=== PATIENT | male | born 1960 | race Caucasian/White ===

== ENCOUNTER 2019-11-12 09:17 | Outpatient (CLI) | payer OTHER, SELFPAY ==
--- NOTE | 2019-11-12 09:27 | XR_ITS ---
WS: [id number] LUMBAR SPINE TECHNIQUE: 3 views of the lumbar spine CLINICAL INFORMATION: BACK PAIN, LUMBAR WITH RADICULOPATHY COMPARISON: None. FINDINGS: Five [id number] lumbar vertebral bodies. Disc space heights are well preserved. No compression f ractures. Grade 1 anterolisthesis L5 on S1 measuring up to 9.9 mm with bilateral spondylolysis. Disc space narrowing worse L5-S1. Moderate facet arthropathy L4-L5 and L5-S1. Bony foraminal narrowing L5- S1. Visualized sacroiliac joints are normal. Normal visualized soft tissues. Partially visualized bowel g as pattern is normal. XR/XR lumbar spine 2-3V* [id number] IMPRESSION: 1. Grade 1 anterolisthesis L5 on S1 measuring 9.9 mm bilateral spondylolysis. 2. Disc space narrowing worse L5-S1. 3. Moderate facet arthropathy L4-L5 and L5-S1. 4. Mild lumbar scoliosis convex right.
== END 2019-11-12 09:18 | disposition home or self-care (01) ==
PROVIDERS: Family Provider Electrodiagnostic Medicine; PCP Electrodiagnostic Medicine; Visit Provider Electrodiagnostic Medicine
DX: M54.16 Radiculopathy, lumbar region (principal); M47.817 Spondylosis without myelopathy or radiculopathy, lumbosacral region
CPT/HCPCS: 72100

== ENCOUNTER 2019-11-20 15:29 | Outpatient (CLI) | payer OTHER, SELFPAY ==
--- NOTE | 2019-11-20 15:42 | MR_ITS ---
WS: [id number] MRI LUMBAR SPINE NONCONTRAST TECHNIQUE: Sagittal T1, T2 and STIR imaging. Axial T1 and T2 imaging. CLINICAL INFORMATION: BACK PAIN, LUMBAR WITH RADICULOPATHY COMPARISON: None. FINDINGS: Mild lumbar curve. No acute compression. L5-S1 chronic spondylolysis. Grade 1 anterolisthesis measure s 9 mm. No high-grade central canal stenosis. L1-L2: Mild annular bulging. Moderate facet arthropathy. Spinal canal and foramen are patent. L2-L3: Mild annular bulging with slight effacement of the ventral thecal sac. Moderate facet arthropa thy. Mild left and no significant right foraminal narrowing. L3-L4: Mild annular bulging. Slight narrowing of the right subarticular recess. Moderate facet arthro griffin. Spinal canal and foramen are patent. L4-L5: Right subarticular disc extrusion with inferior migration of disc material. Disc material in t he right subarticular recess impinges the traversing right L5 nerve root. Disc material measures 8 x 6 mm. Mild right and no significant left foraminal narrowing. Moderate facet arthropathy. L5-S1: Grade 1 anterolisthesis with chronic spondylolysis. Moderate facet arthropathy. Narrowing of t he subarticular recess right greater than left. Encroachment traversing S1 nerve roots. Moderate to a dvanced right facet arthropathy. Mild right greater than left foraminal narrowing. Contact of the exi ting right L5 nerve root. Visualized pelvic bony structures: Normal. Paravertebral soft tissues: Normal. MR/MR lumbar spine wo con* [id number] IMPRESSION: 1. Right L4-5 subarticular disc extrusion extending into the right subarticula r recess. Impingement traversing right L5 nerve root. Disc material measures 8 x 6 mm. Encroachment on the exiting right L5 nerve root with mild right foramin al narrowing. 2. Grade 1 anterolisthesis L5 on S1 with chronic spondylolysis. Anterolisthesi s measures 9 mm. 3. Mild left L2-3 foraminal narrowing. 4. Shallow right pericentral protrusion L3-4 with slight narrowing of the righ t subarticular recess and traversing right L4 nerve root.
== END 2019-11-20 15:30 | disposition home or self-care (01) ==
LOC: RADWPI 15:32
PROVIDERS: Family Provider Electrodiagnostic Medicine; PCP Electrodiagnostic Medicine; Visit Provider Electrodiagnostic Medicine
DX: M51.26 Other intervertebral disc displacement, lumbar region (principal); M54.16 Radiculopathy, lumbar region; M48.061 Spinal stenosis, lumbar region without neurogenic claudication
CPT/HCPCS: 72148

== ENCOUNTER 2020-08-26 12:54 | Outpatient (CLI) | payer OTHER, SELFPAY ==
--- NOTE | 2020-08-26 13:10 | XRR_ITS ---
PROCEDURE INFORMATION: Exam: XR Lumbosacral Spine Exam date and time: 08/26/2020 1:10 PM Age: 60 years old Clinical indication: Low back pain; Prior surgery; Surgery date: 1-6 months; Surgery type: L spine April 2020; Additional info: Back pain, lumbar with radiculopathy, weakness TECHNIQUE: Imaging protocol: XR of the lumbosacral spine. Views: 2 or 3 views. COMPARISON: MR lumbar spine wo con* [id number] 11/20/2019 3:39 PM FINDINGS: Bones/joints: The patient has undergone L4 through S1 posterior fusion and laminectomy with the presence of pedicle screws and rods. Position and alignment appears satisfactory. Degenerative changes are present with scattered osteophytes on the vertebral bodies. There is mild scoliosis but no other significant malalignment. Soft tissues: Unremarkable. XR/XR lumbar spine 2-3V* [id number] IMPRESSION: 1. No acute abnormality. 2. Satisfactory postsurgical appearance of the L4-S1 laminectomy and fusion.
== END 2020-08-26 12:55 | disposition home or self-care (01) ==
PROVIDERS: PCP Electrodiagnostic Medicine; Visit Provider Electrodiagnostic Medicine
DX: R53.1 Weakness (principal); M54.16 Radiculopathy, lumbar region; M43.26 Fusion of spine, lumbar region; M96.1 Postlaminectomy syndrome, not elsewhere classified
CPT/HCPCS: 72100

== ENCOUNTER 2020-09-09 09:23 | Outpatient (CLI) | payer OTHER, SELFPAY ==
--- NOTE | 2020-09-09 09:30 | MR_ITS ---
WS: [id number] MRI LUMBAR SPINE NONCONTRAST HISTORY: FUSION OF LUMBAR SPINE, WEAKNESS, BACK PAIN W RADICULOPATHY COMPARISON: 11/20/2019 TECHNIQUE: Sagittal and axial multisequence imaging is submitted. Same numbering pattern will be utilized on today's examination as on the prior study. Prior posterior lumbar fusion extending from L4 to S1. L5 anterolisthesis by 7.5 mm. Interbody spacers at L4-5 and L5-S1. Mild RIGHT curvature of the lumbar spine. There is a large amount of edema within the L4, L5 and S1 1 vertebral bodies and also the paravertebr al soft tissues and the disc spaces. Edema along the anterior vertebral bodies. Conus terminates normally at L1. L1-L2: Normal. L2-L3: Mild annular disc bulging and ligamentum flavum hypertrophy. Small amount of fluid in the face t joints. Mild narrowing of the foramina bilaterally due to osteophyte disease and facet disease. Sli ghtly greater on the LEFT. L3-L4: Moderate annular disc bulging with mild encroachment upon the ventral thecal sac and the L4 ne rve roots. No high-grade stenosis. L4-L5: Large posterior laminectomy defects. Mild bilateral facet joint arthritis and ligamentum flavu m arthritis. Nerve roots are becoming clumped within the thecal sac. Very mild narrowing of the jennifer justino. L5-S1: Large posterior laminectomy defects. Nerve roots are becoming clumped in the thecal sac. Facet joint arthritis and mild osteophytic ridging and disc bulging. Moderate bilateral foraminal stenosis due to the anterolisthesis and the degenerative disc disease and osteophytosis. Mild clumping of the nerve roots in the thecal sac. Small bilateral renal cysts. MR/MR lumbar spine wo con* [id number] IMPRESSION: 1. Since prior study patient has undergone a posterior lumbar fusion from L4 t o S1. Same numbering pattern utilized on today's examination as the prior MRI o f 11/20/2019. 2. There is a large amount of postoperative edema at the surgical site. Edema within the vertebral bodies from L4 to S1, prevertebral edema and paraspinal ed guilherme. This may all be normal postoperative change. Cannot exclude osteomyelitis or cellulitis without IV contrast. 3. Grade 1 anterolisthesis of L5 is unchanged. 4. Clumping of the nerve roots in the thecal sac from arachnoiditis. 5. Moderate bilateral foraminal stenosis at L5-S1 due to combination of factor s. Similar to the prior study. Slightly greater narrowing of the RIGHT foramen.
== END 2020-09-09 09:24 | disposition home or self-care (01) ==
PROVIDERS: PCP Electrodiagnostic Medicine; Visit Provider Electrodiagnostic Medicine
DX: M43.26 Fusion of spine, lumbar region (principal); M43.27 Fusion of spine, lumbosacral region; R53.1 Weakness; M54.16 Radiculopathy, lumbar region; M48.07 Spinal stenosis, lumbosacral region; R60.0 Localized edema
CPT/HCPCS: 72148

== ENCOUNTER 2022-04-13 09:00 | Outpatient (RCR) | payer OTHER, SELFPAY | END 2022-05-05 23:59 | disposition home or self-care (01) | LOC: SPT 09:00 | PROVIDERS: PCP Electrodiagnostic Medicine; Visit Provider Family Medicine | DX: M25.562 Pain in left knee (principal) | CPT/HCPCS: 97110; 97161 ==

== ENCOUNTER 2022-05-06 06:00 | Outpatient (RCR) | payer OTHER, SELFPAY | END 2022-06-04 10:37 | disposition home or self-care (01) | LOC: SPT 06:00 | PROVIDERS: PCP Electrodiagnostic Medicine; Visit Provider Family Medicine | DX: M25.562 Pain in left knee (principal) | CPT/HCPCS: 97110 ==

== ENCOUNTER → 2023-03-24 10:01 | Outpatient (BNVA) | payer OTHER, SELFPAY | PROVIDERS: PCP Electrodiagnostic Medicine; Visit Provider Podiatrist Foot & Ankle Surgery | DX: M21.6X1 Other acquired deformities of right foot; M21.6X2 Other acquired deformities of left foot; M72.2 Plantar fascial fibromatosis | CPT/HCPCS: 73630; 99203 ==

== ENCOUNTER → 2023-04-21 08:29 | Outpatient (BNVA) | payer OTHER, SELFPAY | PROVIDERS: PCP Electrodiagnostic Medicine; Visit Provider Podiatrist Foot & Ankle Surgery | DX: M72.2 Plantar fascial fibromatosis | CPT/HCPCS: 99213 ==

== ENCOUNTER → 2023-05-12 09:31 | Outpatient (BNVA) | payer OTHER, SELFPAY | PROVIDERS: PCP Electrodiagnostic Medicine; Visit Provider Podiatrist Foot & Ankle Surgery | DX: M72.2 Plantar fascial fibromatosis; M79.671 Pain in right foot | CPT/HCPCS: 99213 ==

== ENCOUNTER 2023-06-30 15:42 | Emergency (ER) | payer OTHER, SELFPAY ==
[2023-06-30 15:57] VITALS: BP 172/81; PULSE 82; RESP 15; TEMP 36.7; O2SAT 96
--- NOTE | 2023-06-30 16:17 | CTR_ITS ---
PROCEDURE INFORMATION: Exam: CT Head Without Contrast Exam date and time: 06/30/2023 4:54 PM Age: 63 years old Clinical indication: Injury or trauma; Fall; Blunt trauma (contusions or hematomas) TECHNIQUE: Imaging protocol: Computed tomography of the head without contrast. Radiation optimization: All CT scans at this facility use at least one of these dose optimization techniques: automated exposure control; mA and/or kV adjustment per patient size (includes targeted exams where dose is matched to clinical indication); or iterative reconstruction. COMPARISON: MR cervical spin wo con* [id number] 08/02/2017 3:58 PM RADIATION DOSE METRICS: Total DLP (mGy-cm): 1143 FINDINGS: Brain: No midline shift. Ventricles, cisterns, and sulci are normal. No mass, acute infarct, hemorrhage, or extraaxial fluid collection. Cerebral ventricles: No ventriculomegaly. Paranasal sinuses: Visualized sinuses are unremarkable. No fluid levels. Mastoid air cells: Visualized mastoid air cells are well aerated. Bones/joints: Unremarkable. No acute fracture. Soft tissues: Unremarkable. CT/CT head wo con* [id number] IMPRESSION: No acute intracranial abnormality.
--- NOTE | 2023-06-30 16:17 | W.ED.DIZZY ---
HPI - Dizziness General: Chief Complaint: Dizziness Stated Complaint: fell 2 days ago, n,v,hot sweats Time Seen by Provider: 06/30/23 16:08 Source: patient Mode of arrival: ambulatory History of Present Illness: HPI Narrative: 63-year-old male presents emergency room with complaint of lightheaded and dizzy spinning sensations very positional when he moves his head he can retrigger or when he lays down. Seem to begin after he fell and hit his head a few days ago on the ice. He has not had any vomiting no vision changes. No previous head injury no history of any seizures did not lose consciousness or have any other injuries when he fell. MD elicited complaint: dizziness Onset (ago): hour(s) Timing: awoke with symptoms Severity: moderate Description: room spinning Context: trauma Exacerbating factors: change in body position and position/lying down Relieving factors: keeping eyes closed Associated symptoms: Denies change in hearing, chest pain, chills, cough, diaphoresis, ear discharge, ear pressure, fevers/chills, headache(s), malaise, nausea, nasal congestion, palpitations, rash, short of breath, syncope, tinnitus, vomiting or weakness Review of Systems Const: Denies: chills, malaise or diaphoresis ENMT: Denies: ear discharge, change in hearing, tinnitus or nasal congestion Card: Denies: chest pain, palpitations or syncope Resp: Denies: dyspnea GI: Denies: nausea or vomiting : Denies: dysuria, urinary frequency or urinary urgency Musc: Denies: neck pain or back pain Skin/Breast: Denies: rash Neuro: Denies: headache(s) Physical Exam Const: COMMON NORMALS: no acute distress GENERAL APPEARANCE: cooperative and comfortable ORIENTATION/CONSCIOUSNESS: Yes awake, Yes oriented to person, Yes oriented to place and Yes oriented to time HENMT: COMMON NORMALS: normocephalic, atraumatic, hearing grossly normal bilaterally, external ears normal, EAC's normal, TM's normal bilaterally and Normal nasal mucous membranes and turbinates present HEAD & SCALP: normocephalic and atraumatic NOSE: Normal nasal mucous membranes and turbinates present EXTERNAL EAR: Yes external ears normal EXTERNAL AUDITORY CANAL: EAC's normal TYMPANIC MEMBRANE: TM's normal bilaterally Eye: COMMON NORMALS: Equal, round and reactive pupils present, EOMs intact bilaterally, conjunctivae normal and no scleral icterus CONJUNCTIVA: Yes conjunctivae normal PUPIL: Yes Equal, round and reactive pupils present Neck/C-Spine: COMMON NORMALS: full ROM, no lymphadenopathy, supple and no JVD Resp: COMMON NORMALS: normal respiratory effort, No retractions, No use of accessory muscles and clear to auscultation bilaterally AUSCULTATION: clear to auscultation bilaterally Cardio: COMMON NORMALS: no JVD, regular rate, regular rhythm and No murmurs present (Cardio) RATE: regular rate RHYTHM: regular rhythm GI: COMMON NORMALS: Soft to palpation and No hepatosplenomegaly present AUSCULTATION: Yes normoactive bowel sounds PALPATION: Yes Soft to palpation, No Tenderness to palpation present (GI), No Guarding due to palpation present (GI) and Yes No hepatosplenomegaly present Extremity: COMMON NORMALS: normal to inspection, capillary refill normal, no clubbing, cyanosis or edema, no calf tenderness and no pedal edema Neuro: SENSORIUM/ORIENTATION: Yes oriented to person, Yes oriented to place and Yes oriented to time Skin: COMMON NORMALS: no rashes or lesions noted GENERAL SKIN EXAM: no rashes or lesions noted Course Vital Signs: Vital signs: Vital Signs Temperature 98.1 F 06/30/23 15:57 Pulse Rate 82 06/30/23 15:57 Respiratory Rate 15 06/30/23 15:57 Blood Pressure 172/81 06/30/23 15:57 Pulse Oximetry 96 06/30/23 15:57 Oxygen Delivery Me thod Room Air 06/30/23 15:57 MDM - Dizziness Medical Decision Making Fall with concussion CT head negative. Discharge patient home discussed usual course of concussions and recovery. Follow-up primary care return if is further problems. Medical Records I reviewed the patient's medical records. Lab Data I reviewed the patient's lab results. 06/30/23 16:14 06/30/23 16:[address] 06/30/23 16:17 IMPRESSION: No acute intracranial abnormality. Laboratory Results WBC 10.15 10^3/uL (3.29-11.43) 06/30/23 16:14 RBC 5.34 10^6/uL (3.85-5.65) 06/30/23 16:14 Hgb 16.20 g/dL (11.27-16.99) 06/30/23 16:14 Hct 47.6 % (37-53) 06/30/23 16:14 MCV 89.1 fl (82-101) 06/30/23 16:14 MCH 30.3 pg (27-33) 06/30/23 16:14 MCHC 34.0 g/dL (30-55) 06/30/23 16:14 RDW 12.6 % (12.1-15.1) 06/30/23 16:14 Plt Count 187 10^3/cmm (157-399) 06/30/23 16:14 MPV 9.2 fL (7.4-10.4) 06/30/23 16:14 Neut % (Auto) 82.4 % 06/30/23 16:14 Lymph % (Auto) 11.4 % 06/30/23 16:14 Pike % (Auto) 4.5 % 06/30/23 16:14 Eos % (Auto) 1.1 % 06/30/23 16:14 Baso % (Auto) 0.3 % 06/30/23 16:14 Neut # (Auto) 8.36 10^3/uL (1.8-7.7) H 06/30/23 16:14 Lymph # (Auto) 1.2 10^3/uL (0.8-4.8) 06/30/23 16:14 Pike # (Auto) 0.5 10^3/uL (0.2-0.9) 06/30/23 16:14 Eos # (Auto) 0.1 10^3/uL (0.0-0.8) 06/30/23 16:14 Baso # (Auto) 0.0 10^3/uL (0.0-0.1) 06/30/23 16:14 Nucleated RBC % (auto) 0 % 06/30/23 16:14 Nucleated RBCs # 0.0 /100WBC 06/30/23 16:14 Sodium 140 mmol/L (136-145) 06/30/23 16:14 Potassium 4.3 mmol/L (3.5-5.1) 06/30/23 16:14 Chloride 106 mmol/L (98-107) 06/30/23 16:14 Carbon Dioxide 24 mmol/L (22-29) 06/30/23 16:14 Anion Gap 14.3 (5-19) 06/30/23 16:14 BUN 19 mg/dL (8-23) 06/30/23 16:14 Creatinine 1.0 mg/dL (0.7-1.2) 06/30/23 16:14 GFR Calculation 75.7 mL/min (90-130) L 06/30/23 16:14 Glucose 186 mg/dL (65-115) H 06/30/23 16:14 Calculated Osmolality 297 mOsm/kg (285-295) H 06/30/23 16:14 Calcium 9.2 mg/dL (8.5-10.5) 06/30/23 16:14 Total Bilirubin 0.4 mg/dL (0.15-1.2) 06/30/23 16:14 AST 17 U/L (0-40) 06/30/23 16:14 ALT 19 U/L (0-41) 06/30/23 16:14 Alkaline Phosphatase 67 U/L (40-130) 06/30/23 16:14 Total Protein 6.7 g/dL (6.6-8.7) 06/30/23 16:14 Albumin 4.0 g/dL (3.5-5.2) 06/30/23 16:14 Globulin 2.7 g/dL (1.3-4.6) 06/30/23 16:14 All radiology interpretation(s) finalized by discharge Discharge Plan Discharge Patient Disposition: Home Clinical Impression: Concussion Condition: Stable Prescriptions: New meclizine 25 mg tablet 25 mg PO QID PRN (Reason: dizziness) Qty: 20 0RF No Action (DME) Custom Orthotics See Rx Instructions .Route .MEDSUPPLY Qty: 1 0RF Rx Instructions: As directed by Avinash Gil zinc acetate 50 mg (zinc) Capsule 25 mg PO DAILY meloxicam 15 mg Tablet 15 mg PO DAILY Synthroid 100 mcg Tablet 100 mcg PO DAILY Vitamin C 500 mg Tablet 500 mg PO DAILY gabapentin 300 mg Capsule 300 mg PO TID Vitamin D3 25 mcg (1,000 unit) Capsule 25 mcg PO DAILY rosuvastatin 10 mg Tablet 5 mg PO QPM Fish Oil 500 mg Capsule 500 mg PO DAILY Discharge Orders: Discharge ED (Routine); Ordered 06/30/23 Ordered By: Nj Alexander Referrals: Steven Musa, [Primary Care Provider] - Patient Instructions: Concussion (ED), Opioid Safety, Pain Management Activity Restrictions/Additional Instructions: Thank you for choosing [facility] for your healthcare needs today. Please realize this is an emergency room and that we are providing you with a medical screening exam and this may not be complete and all inclusive of all the testing and or work up that you may need to determine your ailment or severity of your illness. It is very important that you follow up as instructed or that you return to the Emergency Department should you have concerns or if your condition changes or worsens in any way. Coding Level of Care Code ED [employer] for Julita Freitas
[2023-06-30 16:30] LABS: Basophils % 0.3 %; Eosinophils # 0.1 10^3/uL (0.0-0.8); Eosinophils % 1.1 %; Hematocrit 47.6 % (37-53); Lymphocytes # 1.2 10^3/uL (0.8-4.8); Lymphocytes % 11.4 %; Mean Corpuscular Hemoglobin 30.3 pg (27-33); Mean Corpuscular Volume 89.1 fl (82-101); Mean Platelet Volume 9.2 fL (7.4-10.4); Monocytes # 0.5 10^3/uL (0.2-0.9); Monocytes % 4.5 %; Neutrophils # 8.36 10^3/uL (1.8-7.7); Neutrophils % 82.4 %; Nucleated Red Blood Cells % 0 %; Platelet Count 187 10^3/cmm (157-399); Red Blood Count 5.34 10^6/uL (3.85-5.65); Red Cell Distribution Width 12.6 % (12.1-15.1); White Blood Count 10.15 10^3/uL (3.29-11.43)
[2023-06-30 16:44] LABS: Alanine Aminotransferase 19 U/L (0-41); Alkaline Phosphatase 67 U/L (40-130); Anion Gap 14.3 (5-19); Aspartate Amino Transferase 17 U/L (0-40); Blood Urea Nitrogen 19 mg/dL (8-23); Calcium 9.2 mg/dL (8.5-10.5); Carbon Dioxide 24 mmol/L (22-29); Chloride 106 mmol/L (98-107); Globulin 2.7 g/dL (1.3-4.6); Glomerular Filtration Rate 75.7 mL/min (90-130); Glucose 186 mg/dL (65-115); Osmolality Calculated 297 mOsm/kg (285-295); Potassium 4.3 mmol/L (3.5-5.1); Sodium 140 mmol/L (136-145); Total Bilirubin 0.4 mg/dL (0.15-1.2); Total Protein 6.7 g/dL (6.6-8.7)
== END 2023-06-30 17:39 | disposition home or self-care (01) ==
PROVIDERS: Emergency Provider Family Medicine; PCP Electrodiagnostic Medicine
DX: S06.0X0A Concussion without loss of consciousness, initial encounter (principal); W00.0XXA Fall on same level due to ice and snow, initial encounter
CPT/HCPCS: 70450; 80053; 85025; 99284

== ENCOUNTER 2024-03-16 10:39 | Outpatient (CLI) | payer OTHER, SELFPAY ==
--- NOTE | 2024-03-16 10:41 | MR_ITS ---
WS: [id number] MRI HEAD WITH CONTRAST TECHNIQUE: Sagittal T1, T2 axial, T2 axial FLAIR, axial susceptibility weighted imaging, axial diffus ion weighted images, and coronal T2 images were obtained. Pre and post-T1 axial and post T1 coronal i mages. ADC and FSPGR images. CLINICAL INFORMATION: TREMORS COMPARISON: CT head 06/30/2023 FINDINGS: No evidence of restricted diffusion to suggest acute ischemia. Mild small vessel changes. Moderate parenchymal volume loss. Normal posterior fossa. Normal vascular flow voids at the skull base. No extra-axial fluid collections. No evidence of mass or mass effect. Paranasal sinuses and mastoid air cells are well aerated. Normal posterior nasopharynx. Normal optic chiasm and pituitary infundibulum. Temporal lobes and hippocampal formations are normal in appearance. No hemosiderin on the stability weighted images. No abnormal gadolinium enhancement. Normal dural venous sinuses. MR/MR head wo/w con [id number] IMPRESSION: 1. No evidence of restricted diffusion to suggest acute ischemia. 2. Mild small vessel changes. Moderate parenchymal volume loss. 3. No hemosiderin on the susceptibly weighted images. 4. No abnormal gadolinium enhancement.
[2024-03-16] MEDS: gadobenate dimeglumine 20 mL vial IV (11:48)
== END 2024-03-16 10:40 | disposition home or self-care (01) ==
LOC: RAD 10:39
PROVIDERS: PCP Family Medicine; Visit Provider Family Medicine
DX: G31.89 Other specified degenerative diseases of nervous system (principal)
CPT/HCPCS: 70553

== ENCOUNTER → 2024-10-30 08:42 | Outpatient (BNVA) | payer OTHER, SELFPAY | PROVIDERS: PCP Family Medicine; Referring Provider Family Medicine; Visit Provider Specialist | DX: G31.84 Mild cognitive impairment of uncertain or unknown etiology (principal); G62.9 Polyneuropathy, unspecified; G25.0 Essential tremor | CPT/HCPCS: 36415; 82542; 82607; 83520; 96116; 99205 ==

== ENCOUNTER → 2025-01-30 09:30 | Outpatient (BNVA) | payer OTHER, SELFPAY | PROVIDERS: PCP Family Medicine; Referring Provider Family Medicine; Visit Provider Specialist | DX: G31.84 Mild cognitive impairment of uncertain or unknown etiology (principal); G63 Polyneuropathy in diseases classified elsewhere; G25.0 Essential tremor | CPT/HCPCS: 99214 ==

== ENCOUNTER → 2025-03-26 10:34 | Outpatient (BNVA) | payer OTHER, SELFPAY | PROVIDERS: PCP Family Medicine; Visit Provider Surgery | DX: Z12.11 Encounter for screening for malignant neoplasm of colon (principal); R03.0 Elevated blood-pressure reading, without diagnosis of hypertension; G89.29 Other chronic pain; M25.561 Pain in right knee; M25.562 Pain in left knee | CPT/HCPCS: 20610; 73560; 73565; 99204; J7325 ==

== ENCOUNTER 2025-04-18 08:26 | Day surgery (SDC) | payer OTHER, SELFPAY ==
[2025-04-18 08:42] VITALS: BP 147/93; PULSE 69; RESP 18; TEMP 36.3; O2SAT 97; BMI 28.0
--- NOTE | 2025-04-18 09:33 | W.PM.OPSUD ---
Surgery/Procedure H&P Update DATE OF PROCEDURE: April 18, 2025 DATE H&P PERFORMED: 03/26/25 H&P UPDATE INFORMATION: I have reviewed H&P completed within last 30 days, I have examined patient prior to procedure, No changes to prior documentation, H&P is in [facility] EMR on date indicated and Risks and benefits of the procedure reviewed PLANNED PROCEDURE: Operation Date: 04/18/25 09:55 Proposed Procedures p Colonoscopy 30363 G0121 Z12.11(Not Applicable) - Taco Foster MD
--- NOTE | 2025-04-18 10:03 | ANES.PREANE2 ---
Pre-Anesthetic Assessment Height/Weight: Height 1.93 m Weight 104.326 kg Temp Pulse Resp BP Pulse Ox O2 Del Method 97.4 F L 69 18 147/93 97 Room Air 04/18/25 08:42 04/18/25 08:42 04/18/25 08:42 04/18/25 08:42 04/18/25 08:42 04/18/25 08:42 Operation Date: 04/18/25 09:55 Proposed Procedures p Colonoscopy 42093 G0121 Z12.11(Not Applicable) - Taco Foster MD Familial anesthetic complications: None Was Beta Hillary taken within 24 hours: N/A Was Clonidine taken within 24 hours: N/A Last intake: Intake Last Liquid Date 04/17/25 Last Liquid Time 20:00 Last Solid Date 04/16/25 Last Solid Time 20:00 Social No alcohol and No tobacco Exam alert, oriented x 3, clear to auscultation bilaterally and regular rate & rhythm Airway Mallampati: Class III Dentition: full Metabolic Thyroid Disease Anesthetic Plan ASA status: 2 Anesthesia: MAC Risk of > 500 ml blood loss (7ml/kg in children): No Medications/Allergies Home Medications ?Medication ?Instructions ?Recorded ?Confirmed ?Last Taken ?Type Custom Orthotics #1 ea 05/12/23 03/26/25 Unknown Rx ascorbic acid (vitamin C) 500 mg 500 mg PO DAILY 06/30/23 04/15/25 04/15/25 History tablet (Vitamin C) cholecalciferol (vitamin D3) 25 25 mcg PO DAILY 06/30/23 04/15/25 04/15/25 History mcg (1,000 unit) capsule (Vitamin D3) gabapentin 300 mg capsule 300 mg PO TID 06/30/23 04/15/25 04/15/25 History levothyroxine 100 mcg tablet 100 mcg PO DAILY 06/30/23 04/15/25 04/15/25 History (Synthroid) meloxicam 15 mg tablet 15 mg PO DAILY 06/30/23 04/15/25 04/15/25 History omega-3 fatty acids 500 mg capsule 500 mg PO DAILY 06/30/23 04/15/25 04/15/25 History cetirizine 10 mg tablet 10 mg PO DAILY PRN Allergic 10/30/24 04/15/25 04/14/25 History Symptoms primidone 50 mg tablet 25 mg PO TID 10/30/24 04/15/25 04/18/25 07:00 History cyanocobalamin (vitamin B-12) 1,000 mcg IM .weekly 4 weeks #4 mL 11/20/24 04/15/25 04/12/25 Rx 1,000 mcg/mL injection solution Allergies Allergy/AdvReac Type Severity Reaction Status Date / Time hydrocodone Allergy Intermediate ADR-Itching Verified 04/18/25 08:38 Current Medications Generic Name Dose Route Start Last Admin Trade Name Freq PRN Reason Stop Dose Admin Sodium Chloride 1,000 mls @ 15 mls/hr 04/18/25 08:33 04/18/25 08:48 Sodium Chloride 0.9% IV 04/19/25 08:32 15 mls/hr .Q24H PRN Administration COLONOSCOPY FLUIDS PFSH Anesthesia Family History Family/Other Diabetes Social History Smoking and tobacco/nicotine status: former use of tobacco/nicotine
[2025-04-18 10:30] VITALS: BP 105/75; PULSE 79; RESP 20; TEMP 36.5; O2SAT 96
[2025-04-18 10:40] VITALS: BP 122/89; PULSE 88; RESP 20; O2SAT 93
[2025-04-18 10:46] VITALS: BP 142/93; PULSE 83; RESP 20; O2SAT 95
--- NOTE | 2025-04-18 11:05 | ANE.PACU2 ---
Inpatient post-anesthesia follow up: Airway intact: Yes Vital signs: Temperature 97.7 F Pulse Rate 83 Respiratory Rate 20 Blood Pressure 142/93 Pulse Oximetry 95 Oxygen Delivery Me thod Room Air Oxygen Flow Rate Fraction of Inspir ed Oxygen Hydration adequate: Yes Nausea and vomiting: No Pain level: 1 Mental status: Baseline
== END 2025-04-18 11:06 | disposition home or self-care (01) ==
PROVIDERS: PCP Family Medicine; Visit Provider Surgery
PROC: 0DJD8ZZ Inspection of Lower Intestinal Tract, Via Natural or Artificial Opening Endoscopic (ICD-10-PCS; CPT 45378; principal; 2025-04-18 09:55)
DX: Z12.11 Encounter for screening for malignant neoplasm of colon (principal); K64.8 Other hemorrhoids; E07.9 Disorder of thyroid, unspecified; Z87.891 Personal history of nicotine dependence
CPT/HCPCS: 45378; J2704; J7030; J9999